=== PATIENT | male | born 1965 | race Caucasian/White ===

== ENCOUNTER 2020-12-12 11:27 | Outpatient (CLI) | payer MEDICARE, SELFPAY ==
--- NOTE | 2020-12-12 11:30 | ECG_ITS ---
Measurements Intervals [place] Rate: 95 P: 58 CO: 129 QRS: 44 QRSD: 93 T: 44 QT: 327 QTc: 411 Interpretive Statements SINUS RHYTHM BASELINE ARTIFACT- I, II, AVR, AVL NORMAL ECG Electronically Signed On 12-12-2020 12:05:32 CDT by Tanner Sanders D.O.
[2020-12-12 12:23] LABS: Anion Gap 10 mmol/L (8-16); Blood Urea Nitrogen 13 mg/dL (9-20); Carbon Dioxide 24 mmol/L (22-30); Chloride 105 mmol/L (98-107); Estimated Glomerular Filt Rate > 60; Glucose 147 mg/dL (75-110); Potassium 4.1 mmol/L (3.4-5.0); Sodium 139 mmol/L (137-145)
== END 2020-12-12 11:28 | disposition home or self-care (01) ==
PROVIDERS: Anesthesiology; PCP Family Medicine; Visit Provider Urology
DX: Z01.818 Encounter for other preprocedural examination (principal); N21.0 Calculus in bladder; E11.9 Type 2 diabetes mellitus without complications
CPT/HCPCS: 36415; 80048; 87086; 87088; 93005

== ENCOUNTER → 2020-12-14 02:19 | Outpatient (CLI) | payer MEDICARE, SELFPAY ==
[2020-12-16 18:37] LABS: SARS-CoV-2 RNA PCR Negative
== END ==
PROVIDERS: PCP Family Medicine; Visit Provider Urology
DX: Z01.812 Encounter for preprocedural laboratory examination (principal); Z20.822 Contact with and (suspected) exposure to COVID-19
CPT/HCPCS: C9803; U0003; U0005

== ENCOUNTER 2020-12-17 02:41 | Day surgery (SDC) | payer MEDICARE, SELFPAY ==
[2020-12-09 11:12] VITALS: BMI 21.6
[2020-12-17] VITALS (7 sets, daily range): BP systolic 115–130; BP diastolic 68–83; PULSE 68–80; RESP 18–22; TEMP 36.1–37.1; O2SAT 98–100
--- NOTE | 2020-12-17 11:02 | WPDHPUPDATE1 ---
History and Physical Update Update Date/Time: 12/17/20 11:02 History and Physical has been reviewed, including an updated exam of the patient. There are NO changes in the patient's condition. Risks, benefits, and alternatives have been discussed and questions answered. Patient agrees to proceed with procedure.
[2020-12-17] MEDS: LACTATED RINGERS 1,000 ML 30 ML IV CONT ×2 (11:07→12:37)
[2020-12-17 11:11] LABS: Glucose Point of Care 132 mg/dl (65-105)
--- NOTE | 2020-12-17 11:25 | WPDANESEPPF ---
Anes - Initial Pre Proc Eval Procedure: Operation Date: 12/17/20 13:30 Proposed Procedures p Cystoscopy with - Danish Snow MD s Holmium Laser of Bladder Stones - Danish Snow MD Date/Time: 12/17/20 11:25 Surgeon: Danish Sonw MD Pre Op Diagnosis: Bladder Stones Patient Data Age: 55 Gender: M Height: 5 ft 7.5 in Weight: 65.5 kg Last Vital Signs Temp 37.1 C 12/17/20 11:01 Pulse 80 12/17/20 11:01 Resp 18 12/17/20 11:01 BP 115/68 12/17/20 11:01 Pulse Ox 98 12/17/20 11:01 Allergies Allergy/AdvReac Type Severity Reaction Status Date / Time No Known Allergies Allergy Verified 12/17/20 11:20 Home Medications Medication Instructions Recorded Confirmed Type calcium 600 mg PO DAILY 12/09/20 12/09/20 History cyanocobalamin (vitamin B-12) 1,000 mcg IM MONTHLY 12/09/20 12/09/20 History [Vitamin B-12] glipizide 5 mg PO BID 12/09/20 12/09/20 History lisinopril 2.5 mg PO DAILY 12/09/20 12/09/20 History metformin 500 mg PO BID 12/09/20 12/09/20 History simvastatin 20 mg PO HS 12/09/20 12/09/20 History Laboratory Tests 12/17/20 11:09 POC Capillary Glucose 132 mg/dl H mg/dl (65-105) Patient hx anesthesia problems: none Family hx anesthesia problems: none [facility] Past Medical History Medical History (Updated 12/17/20 @ 11:25 by Mal Coronado MD) Diabetes HTN (hypertension) Hyperlipidemia Paraplegia Social History Social History Smoking packs per day: 0.5 Smoking cigarettes per day: 10.0 Years smoked: 32 Smoking pack-years: 16.00 Smoking status: Current every day smoker Tobacco type: cigarettes and cigars Alcohol intake: current Alcohol use details: RARE - EVERY FEW MONTHS Substance use: current Substance use type: marijuana Other substance usage details: SMOKE Last use: 12/09/20 Living arrangements: with family Spiritual care concerns: No Anes - Eval Final PreProcedure Day of Procedure 12/17/20 11:25 Patient weight: normal Heart: regular rate and rhythm Lungs: clear to auscultation Airway: Mallampati scale class II Neurological: alert and oriented Last oral intake: >/= 8 hours ASA classification: III Emergent: no Anesthetic plan: proceed Anesthesia type and monitoring: general LMA and standard monitoring Informed Consent: The patient's anesthetic plan and its attendant risks and benefits were discussed with the patient/family/POA. Questions were solicited and answers provided to the satisfaction of the patient/family/POA.
[2020-12-17] MEDS: ceFAZolin 2 GM/D5W 50 ML 2 GM/50 ML BAG IVPB (11:28)
[2020-12-17] MEDS: LIDOCAINE HCL 2% GEL UROJET 10 ML PKG MUCOUS MEM (12:10)
--- NOTE | 2020-12-17 12:29 | P.OP_ITS ---
Procedure Note - Detailed Date of procedure: 12/17/20 Pre-op diagnosis: Bladder Stones Post-op diagnosis: same Procedure performed: Holmium laser of 4 bladder stones-largest 2 measuring 1-1/2 to 2 cm each. Fulguration of bladder Description of procedure: Patient is taken the operative suite and correctly identified. Once anesthesia was obtained he was placed in dorsal lithotomy position and prepped draped usual sterile fashion. Twenty-two Japanese scope was inserted in the bladder. He has 4 large bladder stones present. Largest to measure 1.5-2 cm a piece. Using a 1000 micron holmium laser fiber we fragmented the stones into small pieces. We then retrieved and sent for analysis. There was some oozing along the posterior wall which we fulgurated with a Bugbee. There appeared to be good hemostasis at termination. We placed 2% viscous lidocaine urethra and placed an 18 Japanese Norman. 10 cc were placed in the balloon. This connected to continuous bladder irrigation and patient is taken recovery stable condition. If his urine is cleared to be discharged home with a Norman catheter and have removed in couple of days. He will then resume intermittent catheterization at that time. Anesthesia: GLMA Surgeon: Danish Snow MD Drains: Yes Packing: No Pathology: yes Complications: No immediate complications Condition: stable Disposition: PACU
[2020-12-17] MEDS: ONDANSETRON INJ 4 MG/2 ML VIAL IV PUSH (13:19)
[2020-12-17 14:24] LABS: Glucose Point of Care 145 mg/dl (65-105)
== END 2020-12-17 14:19 | disposition home or self-care (01) ==
PROVIDERS: PCP Family Medicine; Visit Provider Urology
PROC: 0TCB8ZZ Extirpation of Matter from Bladder, Via Natural or Artificial Opening Endoscopic (ICD-10-PCS; CPT 52352; principal; 2020-12-17 13:30)
PROC: (CPT 52317; 2020-12-17 13:30)
DX: N21.0 Calculus in bladder (principal); I10 Essential (primary) hypertension; E78.5 Hyperlipidemia, unspecified; E11.9 Type 2 diabetes mellitus without complications; G82.20 Paraplegia, unspecified; Z79.84 Long term (current) use of oral hypoglycemic drugs; F17.210 Nicotine dependence, cigarettes, uncomplicated; F12.90 Cannabis use, unspecified, uncomplicated
CPT/HCPCS: 52317; 82365; 82948; 88300; A9270; J0690; J1100; J2250; J2405; J2704; J3010; J7120